=== PATIENT | male | born 1965 | race Caucasian/White ===

== ENCOUNTER → 2017-09-16 | Outpatient (CLI) | payer BC ==
[~2017-09-16] MED LIST: ASPI81TA28 PO; MULT-513 PO; OMEG10007 PO; TADA10TA PO
--- NOTE | 2017-09-22 09:46 | CODING QUERY MEDICAL NECESSITY ---
CQSUPPORTING DIAGNOSIS NEEDED A supporting diagnosis is required for the test/procedure performed on this patient in order for us to be reimbursed by the patient's insurance. Please provide a supporting diagnosis for the following test/procedure listed below next to the test name along with your signature. *If there is no additional diagnosis for this patient that would support the following test/procedure please document that below next to the test/procedure. Test(s)/Procedure(s) that require a supporting diagnosis: DOS 09/16/17 PROSTATE SPECIFIC TEST Provider Signature: Date: Thank you Melvi Jameson [employer] Once completed, please kindly fax back to [phone] For questions please call [phone]
== END | disposition home or self-care (01) ==
LOC: C.LABBC 13:18
PROVIDERS: ATTEND Urology
DX: N41.1 Chronic prostatitis (principal); N52.9 Male erectile dysfunction, unspecified; N53.12 Painful ejaculation; Z12.5 Encounter for screening for malignant neoplasm of prostate